=== PATIENT | male | born 1975 | race African-American/Black ===

== ENCOUNTER 2018-11-23 15:16 | Emergency (ER) | payer BC, OTHER ==
--- NOTE | 2018-11-23 15:45 | ER Document Report ---
ED Medical Screen (RME) - General Chief Complaint: Chest Pain Stated Complaint: PALPITATIONS Time Seen by Provider: 11/23/18 15:39 Primary Care Provider: ERIC COATS NP [Primary Care Provider] - Follow up as needed TRAVEL OUTSIDE OF THE [place] IN LAST 30 DAYS: No - HPI Notes: 11/23/18 15:42 Patient is a 43-year-old male with history of asthma who presents complaining of palpitations and occasional chest pressure intermittently over the last 2 weeks, but constant today which is what prompted him to come to the emergency department for evaluation. Patient states that he is eating and drinking without difficulty. He is urinating normally and having normal bowel movements. Patient states that he does not have any active chest pain or discomfort at this time. He has not had any trouble breathing. No history of CAD, CHF, diabetes. Denies any prolonged immobilization, distance travel, recent surgery/trauma, personal cancer history, hormone use, smoking, or previous DVT/PE. Denies RAPP, fever, neck pain, URI, active CP, SOB, Abd pain, n/v/d, dysuria, back pain, or rash. I have treated and performed a rapid initial assessment of this patient. A comprehensive ED assessment and evaluation of the patient, analysis of test results and completion of medical decision making process will be conducted by additional ED providers. PHYSICAL EXAMINATION: GENERAL: Well-appearing, well-nourished and in no acute distress. A&Ox4. Answers questions appropriately. LUNGS: Breath sounds clear to auscultation bilaterally and equal. No wheezes rales or rhonchi. HEART: IRR (a-fib) Extremities: No cyanosis, clubbing, or edema b/l. No lower extremity asymmetry. Betina negative bilaterally. NEUROLOGICAL: Normal speech, normal gait. PSYCH: Normal mood, normal affect. - Related Data Allergies/Adverse Reactions: aspirin [Aspirin] Allergy (Verified 11/23/18 15:17) ibuprofen [From Motrin] Allergy (Verified 11/23/18 15:17) Edema Penicillins Allergy (Verified 11/23/18 15:17) Past Medical History - Past Medical History Cardiac Medical History: Denies: Hx Coronary Artery Disease, Hx Heart Attack, Hx Hypertension Pulmonary Medical History: Reports: Hx Asthma Denies: Hx Bronchitis, Hx COPD, Hx Pneumonia Neurological Medical History: Denies: Hx Cerebrovascular Accident, Hx Seizures Musculoskeltal Medical History: Denies Hx Arthritis Past Surgical History: Denies: Hx Pacemaker - Immunizations Hx Diphtheria, Pertussis, Tetanus Vaccination: Yes Physical Exam - Vital signs Vitals: Temp Pulse Resp BP Pulse Ox 98.4 F 134 H 18 141/99 H 96 11/23/18 15:28 11/23/18 15:28 11/23/18 15:28 11/23/18 15:28 11/23/18 15:28 Course - Vital Signs Vital signs: Temp Pulse Resp BP Pulse Ox 98.4 F 134 H 18 141/99 H 96 11/23/18 15:28 11/23/18 15:28 11/23/18 15:28 11/23/18 15:28 11/23/18 15:28 Doctor's Discharge - Discharge Referrals: ERIC COATS IMPROVEMENT ADVISOR [Primary Care Provider] - Follow up as needed
--- NOTE | 2018-11-23 16:28 | RADIOLOGY REPORT (SQ) ---
EXAM DESCRIPTION: CHEST SINGLE VIEW COMPLETED DATE/TIME: 11/23/2018 4:15 pm REASON FOR STUDY: palpitations COMPARISON: 12/05/2011 TECHNIQUE: Single frontal radiographic view of the chest acquired. NUMBER OF VIEWS: One view. LIMITATIONS: None. FINDINGS: LUNGS AND PLEURA: No pneumothorax. No consolidation or pleural effusion. MEDIASTINUM AND HILAR STRUCTURES: Stable. HEART AND VASCULAR STRUCTURES: Stable. BONES: No acute findings. HARDWARE: None in the chest. OTHER: No other significant finding. IMPRESSION: NO ACUTE FINDINGS. TECHNICAL DOCUMENTATION: JOB ID: [id number] [place]-72 2010 [employer]- All Rights Reserved Reading location - IP/workstation name: [employer]
--- NOTE | 2018-11-23 17:05 | EKG REPORT ---
SEVERITY:- ABNORMAL ECG - ATRIAL FIBRILLATION, V-RATE 82-146 ABNORMAL T, CONSIDER ISCHEMIA, INFERIOR LEADS : Confirmed by: Omar Blakely MD 23-Nov-2018 17:04:48
--- NOTE | 2018-11-23 17:09 | ER Document Report ---
ED General - General Chief Complaint: Chest Pain Stated Complaint: PALPITATIONS Time Seen by Provider: 11/23/18 15:39 Primary Care Provider: ERIC COATS NP [NO LOCAL MD] - Follow up in 3-5 days JLUIS DE LA PAZ MD [ACTIVE STAFF] - Follow up tomorrow (call for appointment. ) Notes: Patient is a 43-year-old male that presents to the emergency department for chief complaint of palpitations. Patient reports his been having the symptoms on and off for the past 3 weeks, but today it seemed to be worse, they felt mildly short of breath with it, but denies any chest pain, just feeling palpitations. He states he has asthma, but no other medical problems, denies hypertension, CHF, CAD, hyperlipidemia or diabetes. Denies family history of heart disease. At this time he states he is feeling a lot better, denies any palpitations or any other symptoms at this time. Denies any nausea, vomiting, dysuria, hematuria, chest pain, shortness of breath, fevers, chills, night sweats. He currently only uses albuterol as needed, and has not had to use it recently. Past Medical History: Asthma Past Surgical History: Denies surgical history Social History: Denies tobacco use, admits to occasional alcohol use, denies illicit drug use. Family History: Reviewed and noncontributory for presenting illness Allergies: Reviewed, see documented allergy list. REVIEW OF SYSTEMS: Other than noted above, the 12 point review of systems was reviewed with the patient and were negative, all pertinent findings are included in the HPI. PHYSICAL EXAMINATION: Vital signs reviewed, nursing noted reviewed. GENERAL: Well-appearing, well-nourished and in no acute distress. HEAD: Atraumatic, normocephalic. EYES: Eyes appear normal, extraocular movements intact, sclera anicteric, conjunctiva are normal. ENT: nares patent, oropharynx clear without exudates. Moist mucous membranes. NECK: Normal range of motion, supple without lymphadenopathy LUNGS: Breath sounds clear to auscultation bilaterally and equal. No wheezes rales or rhonchi. HEART: Heart rate regular, irregular rhythm. No audible murmur. ABDOMEN: Soft, nontender, normoactive bowel sounds. No rebound, guarding, or rigidity. No masses appreciated. EXTREMITIES: Nontender, good range of motion, no pitting or edema. NEUROLOGICAL: No focal neurological deficits. Moves all extremities spontaneously Motor and sensory grossly intact on exam. PSYCH: Normal mood, normal affect. SKIN: Warm, Dry, normal turgor, no rashes or lesions noted on exposed skin TRAVEL OUTSIDE OF THE [place] IN LAST 30 DAYS: No - Related Data Allergies/Adverse Reactions: aspirin [Aspirin] Allergy (Verified 11/23/18 15:17) ibuprofen [From Motrin] Allergy (Verified 11/23/18 15:17) Edema Penicillins Allergy (Verified 11/23/18 15:17) Past Medical History - Social History Smoking Status: Never Smoker Frequency of alcohol use: None Drug Abuse: None Family History: Reviewed & Not Pertinent Patient has suicidal ideation: No Patient has homicidal ideation: No - Past Medical History Cardiac Medical History: Denies: Hx Coronary Artery Disease, Hx Heart Attack, Hx Hypertension Pulmonary Medical History: Reports: Hx Asthma Denies: Hx Bronchitis, Hx COPD, Hx Pneumonia Neurological Medical History: Denies: Hx Cerebrovascular Accident, Hx Seizures Renal/ Medical History: Denies: Hx Peritoneal Dialysis Musculoskeletal Medical History: Denies Hx Arthritis Past Surgical History: Denies: Hx Pacemaker - Immunizations Hx Diphtheria, Pertussis, Tetanus Vaccination: Yes Physical Exam - Vital signs Vitals: Temp Pulse Resp BP Pulse Ox 98.4 F 134 H 18 141/99 H 96 11/23/18 15:28 11/23/18 15:28 11/23/18 15:28 11/23/18 15:28 11/23/18 15:28 Course - Re-evaluation Re-evalutation: Patient seen and examined vital signs reviewed. Laboratory data and/or imaging were ordered as appropriate for the patient's presenting symptoms and complaint, with consideration of any critical or life threatening conditions that may be associated with their obtained history and exam as noted above. Patient was treated with p.o. metoprolol 25 mg Results were reviewed when available and demonstrated unremarkable blood work, normal lecture lites, negative troponin, chest x-ray negative, EKG initially demonstrated atrial fibrillation with mild increased ventricular response, but on my evaluation the patient's heart rate was in the 80s, but still in A. fib on the monitor. The patient was re-evaluated and was stable, asymptomatic, I did discuss his case with Dr. De La Paz with cardiology, regarding new onset A. fib, patient is allergic to aspirin which would typically be recommended in this patient as he is low risk, and would not need full anticoagulation at this time, he will therefore follow-up in the office, and he agreed with twice daily metoprolol 25 mg at this time. Evaluation was most consistent with atrial fibrillation, new onset. Results were discussed with the patient at this point, after careful consideration I feel that that patient can be discharged from the emergency department, the patient was educated treatments and reasons to return to the emergency department based on their presumed diagnosis as noted above, they were advised to followup with a primary care physician in 2-3 days. Patient was agreeable to plan of care. *Note is created using voice recognition software and may contain spelling, syntax or grammatical errors. Laboratory 11/23/18 11/23/18 11/23/18 18:00 18:00 18:00 WBC 9.0 RBC 4.64 Hgb 13.9 Hct 40.1 MCV 86 MCH 30.0 MCHC 34.7 RDW 13.1 Plt Count 297 Seg Neutrophils % 65.6 Lymphocytes % 22.4 Monocytes % 7.3 Eosinophils % 4.0 Basophils % 0.7 Absolute Neutrophils 5.9 Absolute Lymphocytes 2.0 Absolute Monocytes 0.7 Absolute Eosinophils 0.4 Absolute Basophils 0.1 PT 13.0 INR 0.94 Sodium 142.2 Potassium 4.1 Chloride 105 Carbon Dioxide 29 Anion Gap 8 BUN 18 Creatinine 1.19 Est GFR ( Amer) > 60 Est GFR (Non-Af Amer) > 60 Glucose 93 Calcium 9.8 Total Bilirubin 0.9 Direct Bilirubin 0.3 Neonat Total Bilirubin Not Reportable Neonat Direct Bilirubin Not Reportable Neonat Indirect Bili Not Reportable AST 30 ALT 26 Alkaline Phosphatase 79 Troponin I NT-Pro-B Natriuret Pep Total Protein 8.4 H Albumin 4.7 TSH 11/23/18 11/23/18 18:00 18:00 WBC RBC Hgb Hct MCV MCH MCHC RDW Plt Count Seg Neutrophils % Lymphocytes % Monocytes % Eosinophils % Basophils % Absolute Neutrophils Absolute Lymphocytes Absolute Monocytes Absolute Eosinophils Absolute Basophils PT INR Sodium Potassium Chloride Carbon Dioxide Anion Gap BUN Creatinine Est GFR ( Amer) Est GFR (Non-Af Amer) Glucose Calcium Total Bilirubin Direct Bilirubin Neonat Total Bilirubin Neonat Direct Bilirubin Neonat Indirect Bili AST ALT Alkaline Phosphatase Troponin I < 0.012 NT-Pro-B Natriuret Pep 65 Total Protein Albumin TSH 3.79 Chest X-Ray 11/23/18 15:42 IMPRESSION: NO ACUTE FINDINGS. - Vital Signs Vital signs: Temp Pulse Resp BP Pulse Ox 98 F 82 17 137/95 H 99 11/23/18 19:47 11/23/18 19:47 11/23/18 19:47 11/23/18 19:47 11/23/18 19:47 - Laboratory Result Diagrams: 11/23/18 18:00 11/23/18 18:00 Laboratory results interpreted by me: 11/23/18 18:00 Total Protein 8.4 H - EKG Interpretation by Me Additional EKG results interpreted by me: EKG demonstrates atrial fibrillation with a ventricular rate of 113 bpm, normal axis, normal intervals, there is T wave inversion noted in leads II, III and aVF, no ST elevation noted, no prior for comparison. Discharge - Discharge Clinical Impression: Atrial fibrillation Qualifiers: Atrial fibrillation type: paroxysmal Qualified Code(s): I48.0 - Paroxysmal atrial fibrillation Condition: Stable Disposition: HOME, SELF-CARE Instructions: Atrial Fibrillation ([facility]) Additional Instructions: Please follow-up with cardiology, and take the prescription of the metoprolol 25 mg twice daily, until further directed. Prescriptions: RX: Metoprolol Tartrate [Lopressor 25 mg Tablet] 25 mg PO BID #60 tab Referrals: ERIC COATS NP [NO LOCAL MD] - Follow up in 3-5 days JLUIS DE LA PAZ MD [ACTIVE STAFF] - Follow up tomorrow (call for appoi ntment. )
[2018-11-23 18:22] LABS: ABSOLUTE BASOPHILS # (AUTO) 0.1 10^3/uL (0.0-0.2); ABSOLUTE EOSINOPHILS # (AUTO) 0.4 10^3/uL (0.0-0.6); ABSOLUTE MONOCYTES (AUTO) 0.7 10^3/uL (0.1-1.4); ABSOLUTE NEUT (AUTO) 5.9 10^3/uL (1.7-8.2); BASOPHILS % (AUTO) 0.7 % (0-2); HEMATOCRIT 40.1 % (37.9-51.0); HEMOGLOBIN 13.9 g/dL (13.5-17.0); LYMPHOCYTES % (AUTO) 22.4 % (13-45); MEAN CORPUSCULAR HGB CONC 34.7 g/dL (32.0-36.0); MEAN CORPUSCULAR VOLUME 86 fl (80-97); MONOCYTES % (AUTO) 7.3 % (3-13); PLATELET COUNT 297 10^3/uL (150-450); RED BLOOD COUNT 4.64 10^6/uL (4.35-5.55); RED CELL DISTRIBUTION WIDTH 13.1 % (11.5-14.0); SEGMENTED NEUTROPHILS % (AUTO) 65.6 % (42-78); TOTAL CELLS COUNTED % (AUTO) 100 %
[2018-11-23 18:37] LABS: INTERNATIONAL RATION (INR) 0.94
[2018-11-23] MEDS ORDERED: METOPROLOL TARTRATE 25 MG TABLET PO ONE (18:38)
[2018-11-23 18:44] LABS: ALANINE AMINOTRANSFERASE 26 U/L (21-72); ALBUMIN 4.7 g/dL (3.5-5.0); ALKALINE PHOSPHATASE 79 U/L (38-126); ANION GAP 8 (5-19); ASPARTATE AMINO TRANSFERASE 30 U/L (17-59); BILIRUBIN,DIRECT 0.3 mg/dL (0.0-0.4); BILIRUBIN,TOTAL 0.9 mg/dL (0.2-1.3); BLOOD UREA NITROGEN 18 mg/dL (7-20); CALCIUM 9.8 mg/dL (8.4-10.2); CARBON DIOXIDE 29 mmol/L (22-30); CHLORIDE 105 mmol/L (98-107); GLUCOSE 93 mg/dL (75-110); POTASSIUM 4.1 mmol/L (3.6-5.0); SODIUM 142.2 mmol/L (137-145); TOTAL PROTEIN 8.4 g/dL (6.3-8.2)
[2018-11-23 19:08] LABS: NT PRO BNP 65 pg/mL (<125)
[2018-11-23 19:11] LABS: TROPONIN I < 0.012 ng/mL
[2018-11-23 19:48] VITALS: BP 137/95
== END 2018-11-23 19:53 | disposition home or self-care (01) ==
LOC: ER 15:16
DX: I48.0 Paroxysmal atrial fibrillation (principal); R00.2 Palpitations; J45.909 Unspecified asthma, uncomplicated; R06.02 Shortness of breath; Z88.8 Allergy status to other drugs, medicaments and biological substances; Z88.0 Allergy status to penicillin
CPT/HCPCS: 36415; 71045; 80053; 83880; 84443; 84484; 85025; 85610; 93005; 93010; 99285